=== PATIENT | female | born 1985 | race Caucasian/White ===

== ENCOUNTER 2017-02-13 22:22 | Emergency (ER) | payer BC ==
--- NOTE | ~2017-02-13 | EKG ---
PATIENT: VINNIE DASILVA UNIT #: [id number] Ventricular Rate: 74 BPM Atrial Rate: 74 BPM P-R Interval: 130 ms QRS Duration: 86 ms Q-T Interval: 412 ms QTC Calculation(Bezet): 457 ms P [place]: 61 degrees Calculated R [place]: 28 degrees Calculated T [place]: 35 degrees Diagnosis Line: Normal sinus rhythm Diagnosis Line: Normal ECG Diagnosis Line: No previous ECGs available Diagnosis Line: Confirmed by MICHAEL MALLOY MD ([id number]) on Diagnosis Line: 02/19/2017 8:29:42 AM INTERPRETING MD: GAMA CASTRO
--- NOTE | ~2017-02-13 | CT71 ---
[facility] A Service [facility] RADIOLOGY TEXT RESULTS PATIENT: VINNIE DASILVA LOCATION: SED : 81 UNIT #: [id number] AGE: [address]: CINTHYA COTTO SEX: F ORDER DR: [id number] [place] [id number] [id number] MR#: [id number] #: [id number] NAME: VINNIE DASILVA : 1985 SEX: F STUDY DATE/TIME: 02/14/2017 0:08 UNIT: SED ROOM: STUDY DESCRIPTION: CT Head Wo Contrast Attending Physician: Cinthya Cotto Aprn Ordering Physician: Cinthya Cotto Aprn Primary Care Physician: Markell Mims D.O. MEDICAL IMAGING REPORT This report is preliminary unless electronic signature is present. EXAM CT scan of the head without contrast INDICATIONS Dizziness and sweating for 2 days. Hypertension. TECHNIQUE Axial noncontrast images were obtained from the skull base to the vertex. This CT exam was performed with one or more of the following radiation dose reduction techniques: Automatic exposure control, adjustment of mA and/or kV according to patient size, and iterative reconstruction. FINDINGS Ventricular size and configuration are normal. There is no evidence of acute infarct or hemorrhage. There are no extraaxial fluid collections. No mass lesion or mass effect is seen. There are no skull fractures. IMPRESSION Normal noncontrast head CT. Dictated by... Domenico Leon M.D. THIS IS AN ELECTRONICALLY VERIFIED REPORT Domenico Leon M.D. at 02/14/2017 2:12 AM DANE/paco TD: 02/14/2017 01:26 JOB #: [id number] [facility] A Service [facility] RADIOLOGY TEXT RESULTS PATIENT: VINNIE DASILVA LOCATION: SED : 81 UNIT #: [id number] AGE: [address]: CINTHYA COTTO SEX: F ORDER DR: MEDICAL IMAGING REPORT Page 1 of 1
[~2017-02-13 22:22] MED LIST: AMOXICILLIN500 M1 PO; CELEXA20 MG PO; DIFLUCAN PO; EFFEXOR XR PO; EFFEXOR XR150 MG PO; HYDROCORTISONE15 G3 TP; KEFLEX500 MG PO; PREDNISONE10 MG/DOSE PO; PREDNISONE50 MG PO; ZYRTEC10 M2 PO
[2017-02-13] MEDS ORDERED: NEXPLANON68 MG (22:41)
[2017-02-13] MEDS ORDERED: CLARITIN10 M3 (22:42)
[2017-02-13 23:49] LABS: BASOPHIL# 0.1 X10e3 (0-0.3); BASOPHIL% 0.6 % (0-2.5); EOSINOPHIL# 0.2 X10e3 (0-0.7); EOSINOPHIL% 1.6 % (0.0-7.0); HEMATOCRIT 41.7 % (35.0-45.0); HEMOGLOBIN 13.9 gm/dL (12.0-16.0); LYMPHOCYTE# 1.9 X10e3 (1.0-3.5); LYMPHOCYTE% 15.1 % (17.0-45.0); MEAN CELL VOLUME 88.1 FL (83-96); MEAN CORPUSCULAR HEMOGLOBIN 29.4 PG (28-34); MEAN CORPUSCULAR HGB CONC 33.4 g/dL (30-36); MEAN PLATELET VOLUME 9.8 FL (6.5-11.5); MONOCYTE# 0.9 X10e3 (0-1.0); MONOCYTE% 7.6 % (3.0-12.0); NEUTROPHIL# 9.3 X10e3 (1.5-7.1); NEUTROPHIL% 75.1 % (40-75); PLATELET COUNT 243 X10e3 (140-420); RED BLOOD COUNT 4.73 X10e (3.90-5.30); RED CELL DISTRIBUTION WIDTH 13.6 % (11.0-15.5); WHITE BLOOD COUNT 12.3 X10e3 (4.0-10.5)
[2017-02-13 23:51] LABS: DIFF IND NO
[2017-02-14 00:11] LABS: ALKALINE PHOSPHATASE 70 U/L (32-92); ALT (SGPT) 31 U/L (10-40); AST (SGOT) 23 U/L (10-42); BILIRUBIN,TOTAL 0.4 mg/dL (0.2-2.0); BLOOD UREA NITROGEN 12 mg/dL (9-23); BUN/CREATININE RATIO 13.33; CALCIUM SERUM 9.1 mg/dL (8.4-10.2); CARBON DIOXIDE 25 mmol/L (22-31); CHLORIDE 107 mmol/L (100-111); CREATININE SERUM 0.9 mg/dL (0.6-1.4); GLOM FILT RATE Estimated 84.1 mL/min (>60); GLUCOSE FASTING 135 mg/dL (70-110); POTASSIUM 4.2 mmol/L (3.5-5.1); PROTEIN TOTAL SERUM 7.1 g/dL (6.0-8.3); SODIUM 139 mmol/L (135-145)
[2017-02-14 00:12] LABS: BILIRUBIN, DIRECT <0.1 mg/dL (0.0-0.2); BILIRUBIN,INDIRECT 0.3 mg/dL (0.0-0.9)
[2017-02-14 00:13] LABS: POC - CKMB <1.0 ng/mL (0.0-7.9); POC - TROPONIN <0.05 ng/mL (<=0.05)
[2017-02-14 01:30] LABS: POC - CKMB <1.0 ng/mL (0.0-7.9); POC - TROPONIN <0.05 ng/mL (<=0.05)
== END 2017-02-14 01:50 | disposition home or self-care (01) ==
LOC: SED 22:22
PROVIDERS: Nurse Practitioner Family
DX: R55 Syncope and collapse (principal); R42 Dizziness and giddiness; Z88.2 Allergy status to sulfonamides; Z88.8 Allergy status to other drugs, medicaments and biological substances
CPT/HCPCS: 36415; 70450; 80048; 80076; 82553; 82947; 84484; 84703; 85025; 93005; 96360; 99284